=== PATIENT | male | born 2000 | race African-American/Black ===

== ENCOUNTER 2023-07-02 00:44 | Emergency (ER) | payer MEDICAID ==
[~2023-07-02] VITALS: Ht 170.2 cm; Wt 88.9 kg
[2023-07-02 00:48] VITALS: BP_SYST 159; PULSE 80; RESP 17; TEMP 97.6; O2SAT 98
[2023-07-02] MEDS ORDERED: cefTRIAXone 1 GM in LIDOCAINE 1%, 20 ML MDV 2.1 ML IM ONE (01:00)
[2023-07-02] MEDS ORDERED: KETOROLAC TROMETHAMINE 60 MG/2 ML VIAL IM ONE (01:00)
[2023-07-02] MEDS ORDERED: AUG875 PO (01:31)
[2023-07-02] MEDS ORDERED: NAPR-1172 PO (01:32)
[2023-07-02 01:39] VITALS: BP_SYST 159; PULSE 80; RESP 17; TEMP 97.6; O2SAT 98
[2023-07-03] MEDS ORDERED: CIPR7.5D OT (00:08)
== END 2023-07-02 01:39 | disposition home or self-care (01) ==
LOC: SED 00:44
DX: H65.191 Other acute nonsuppurative otitis media, right ear (principal); Z79.899 Other long term (current) drug therapy
CPT/HCPCS: 99284; 96372; J0696; J1885; J2001

== ENCOUNTER 2023-07-02 18:10 | Emergency (ER) | payer MEDICAID ==
[~2023-07-02] VITALS: Ht 170.2 cm; Wt 88.9 kg
[~2023-07-02 18:10] MED LIST: AUG875 PO; NAPR-1172 PO
[2023-07-02 18:15] VITALS: BP_SYST 149; PULSE 85; RESP 18; TEMP 98; O2SAT 98
[2023-07-02] MEDS ORDERED: MORPHINE 4 MG INJ. 4 MG/ML VIAL IVP ONE (22:45)
[2023-07-03] MEDS ORDERED: CIPR7.5D OT (00:08)
[2023-07-03] MEDS ORDERED: MORPHINE 4 MG INJ. 4 MG/ML VIAL ONE (00:26)
[2023-07-03] MEDS ORDERED: MORPHINE 4 MG INJ. 4 MG/ML VIAL IVP ONE (00:30)
== END 2023-07-03 00:51 | disposition home or self-care (01) ==
LOC: SED 18:10
DX: H66.91 Otitis media, unspecified, right ear (principal); Z79.899 Other long term (current) drug therapy
CPT/HCPCS: 99284; 96374; 96375; 87040; 36415; 96376; J1956; J2270 ×2

== ENCOUNTER 2023-10-08 02:21 | Emergency (ER) | payer MEDICAID ==
[~2023-10-08] VITALS: Ht 170.2 cm; Wt 87.5 kg
[~2023-10-08 02:21] MED LIST changes: +CIPR7.5D OT
[2023-10-08 02:30] VITALS: BP_SYST 112; PULSE 68; RESP 20; TEMP 97.8; O2SAT 98
[2023-10-08] MEDS ORDERED: BENZ100C92 PO (03:08)
[2023-10-08 03:13] VITALS: BP_SYST 112; PULSE 68; RESP 20; TEMP 97.8; O2SAT 98
== END 2023-10-08 03:13 | disposition home or self-care (01) ==
LOC: SED 02:21
DX: J20.9 Acute bronchitis, unspecified (principal); R05.9 Cough, unspecified; R50.9 Fever, unspecified; R07.89 Other chest pain; Z79.899 Other long term (current) drug therapy
CPT/HCPCS: 71045; 99283

== ENCOUNTER 2023-12-01 20:51 | Emergency (ER) | payer MEDICAID ==
[~2023-12-01] VITALS: Ht 167.6 cm; Wt 87.1 kg
[~2023-12-01 20:51] MED LIST changes: +BENZ100C92 PO
[2023-12-01 21:09] VITALS: BP_SYST 125; PULSE 80; RESP 18; TEMP 97.4; O2SAT 99
[2023-12-01] MEDS: KETOROLAC TROMETHAMINE 60 MG/2 ML VIAL IM ONE (23:04)
[2023-12-01] MEDS ORDERED: IBUP-1971 PO (23:07)
[2023-12-01 23:16] VITALS: BP_SYST 125; PULSE 80; RESP 18; TEMP 97.4; O2SAT 99
== END 2023-12-01 23:15 | disposition home or self-care (01) ==
LOC: SED 20:51
DX: M79.621 Pain in right upper arm (principal); R03.0 Elevated blood-pressure reading, without diagnosis of hypertension; Z79.899 Other long term (current) drug therapy; Z79.2 Long term (current) use of antibiotics
CPT/HCPCS: 99283; 96372; J1885